=== PATIENT | male | born 1960 | race American Indian/Alaskan Native ===

== ENCOUNTER 2017-08-15 06:30 | Day surgery (SDC) | payer OTHER ==
[~2017-08-15 06:30] MED LIST: ANCEF/STERILE WATER 2 GM/20 ML 2 GM/20 ML SYRINGE IV NR; MARCAINE 0.5% 30 ML INFILTRATI ONE; NORCO 5/325 PO PRN; XYLOCAINE 1% 20 mL ONE
[2017-08-15] MEDS ORDERED: NACL BACTERIOSTATIC INFILTRATI ONE (07:03)
--- NOTE | 2017-08-15 07:20 | Anesthesia Consultation ---
Anesthesia Consult and Med Hx Date of service: 08/15/17 - Airway Anesthetic Teeth Evaluation: Poor ROM Head & Neck: Adequate Mental/Hyoid Distance: Adequate Mallampati Class: Class II Intubation Access Assessment: Good - Pulmonary Exam CTA: Yes - Cardiac Exam Cardiac Exam: RRR - Pre-Operative Health Status ASA Pre-Surgery Classification: ASA2 Proposed Anesthetic Plan: General - Pulmonary Hx Smoking: Yes (pack a day for over 30 years) - Central Nervous System Hx Psychiatric Problems: No - Other Systems Hx Alcohol Use: No Hx Substance Use: No Hx Cancer: No
--- NOTE | 2017-08-15 07:20 | Anesthesia Day of Surgery ---
Anesthesia Day of Surgery - Day of Surgery Patient Examined: Yes Patient H&P Reviewed: Yes Patient is NPO: Yes
[2017-08-15] MEDS ORDERED: XYLOCAINE MPF 2% ONE (07:23)
[2017-08-15] MEDS ORDERED: ROBINUL ONE ×2 (07:23)
[2017-08-15] MEDS ORDERED: ZEMURON IV ONE (07:23)
[2017-08-15] MEDS ORDERED: DECADRON ONE (07:23)
[2017-08-15] MEDS ORDERED: ZOFRAN ONE (07:23)
[2017-08-15] MEDS ORDERED: NEOSTIGMINE ONE (07:23)
[2017-08-15] MEDS ORDERED: SUBLIMAZE ONE (07:25)
[2017-08-15] MEDS ORDERED: DIPRIVAN 10 MG/ML IV ONE (07:25)
[2017-08-15] MEDS ORDERED: VERSED IV NR (07:30)
[2017-08-15] MEDS ORDERED: TORADOL IM ONE (07:41)
[2017-08-15] MEDS ORDERED: XYLOCAINE 1% 20 mL INFILTRATI ONE (07:41)
[2017-08-15] MEDS ORDERED: MARCAINE 0.5% INFILTRATI ONE (07:41)
[2017-08-15] MEDS ORDERED: NACL 0.9% IR ONE (07:41)
[2017-08-15] MEDS ORDERED: DILAUDID IV PRN (08:00)
[2017-08-15] MEDS ORDERED: LACTATED RINGERS 1,000 ML IV SCH (08:00)
[2017-08-15] MEDS ORDERED: ANCEF/STERILE WATER 2 GM/20 ML 2 GM/20 ML SYRINGE IV NR (08:00)
[2017-08-15] MEDS ORDERED: DILAUDID ONE (08:12)
[2017-08-15] MEDS ORDERED: TORADOL ONE (08:30)
[2017-08-15 09:58] VITALS: BP 154/87
== END 2017-08-15 10:35 | disposition home or self-care (01) ==
LOC: OR 06:30
PROVIDERS: ATTEND Specialist
DX: K40.90 Unilateral inguinal hernia, without obstruction or gangrene, not specified as recurrent (principal); F17.210 Nicotine dependence, cigarettes, uncomplicated; D17.6 Benign lipomatous neoplasm of spermatic cord; Z98.890 Other specified postprocedural states
CPT/HCPCS: 49650; 55559; C1781; J1100; J1885; J2250; J2405; J2704; J2710; J3010; J7120; J1170